=== PATIENT | female | born 1985 | race Two or more races ===

== ENCOUNTER 2020-01-20 19:24 | Emergency (ER) | payer MEDICAID, OTHER ==
[~2020-01-20] VITALS: Ht 157.5 cm; Wt 68.0 kg
[2020-01-20 21:28] VITALS: BP 142/83
== END 2020-01-20 21:51 | disposition home or self-care (01) ==
LOC: ER 19:27
DX: M25.511 Pain in right shoulder (principal); M62.838 Other muscle spasm; V43.62XA Car passenger injured in collision with other type car in traffic accident, initial encounter; Y93.89 Activity, other specified; Y92.89 Other specified places as the place of occurrence of the external cause; Y99.8 Other external cause status
CPT/HCPCS: 73030